=== PATIENT | male | born 1995 | race Caucasian/White ===

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

== ENCOUNTER 2017-04-07 09:19 | Emergency (ER) | payer BC ==
[~2017-04-07] VITALS: Ht 182.9 cm; Wt 80.1 kg
[2017-04-07 09:22] VITALS: TEMP 36.6; Ht 182.9 cm; Wt 80.1 kg
[2017-04-07] MEDS ORDERED: IBUP-103 PO (09:35)
[2017-04-07] MEDS ORDERED: ONDANSETRON INJ 2 MG/ML 2 ML VIAL IV STA (09:44)
[2017-04-07] MEDS ORDERED: MoRPHine SULFATE 4 MG/ML 1 ML CARP\\VIAL IV STA (09:44)
[2017-04-07] MEDS ORDERED: SODIUM CHLORIDE 0.9% 1000ML 1,000 ML IV STA (09:44)
[2017-04-07 09:57] LABS: URINE APPEARANCE CLEAR (CLEAR); URINE BILIRUBIN NEG (NEG); URINE COLOR YELLOW; URINE EPITHELIAL CELL AUTO 0-5 /lpf (0-5); URINE NITRITE NEG (NEG); URINE PH 6.5 (4.5-7.5); URINE SPECIFIC GRAVITY 1.026 (1.000-1.030); UROBILINOGEN NEG (NEG)
[2017-04-07 10:03] LABS: MANUAL MICROSCOPIC REQUIRED? NO; REVIEW REQ? NO
[2017-04-07 10:08] LABS: BASO % 0.1 %; BASO ABS # 0.02 K/uL (0-0.2); COMPLETE YES; EOS % 0.5 %; HEMATOCRIT 44.1 % (42-52); IG% 0.3 %; LYMPH % 7.3 %; LYMPH ABS # 1.11 K/uL (1.2-3.4); MEAN CELL VOLUME 91.3 fL (80-100); MEAN CORPUSCULAR HEMOGLOBIN 32.3 pg (25-34); MEAN CORPUSCULAR HGB CONC 35.4 g/dl (32-36); MEAN PLATELET VOLUME 9.5 fL (7.4-10.4); MONO % 10.3 %; NEUT % 81.5 %; PLATELET COUNT 229 K/uL (130-400); RED BLOOD COUNT 4.83 M/uL (4.7-6.1); WHITE BLOOD COUNT 15.18 K/uL (4.8-10.8)
[2017-04-07 10:19] LABS: BUN/CREATININE RATIO 14.1 (10-20); CALCIUM 9.3 mg/dl (8.5-10.1); CREATININE 0.93 mg/dl (0.60-1.40); POTASSIUM 3.7 mmol/L (3.5-5.1)
--- NOTE | 2017-04-07 11:31 | DIAGNOSTIC IMAGING REPORT ---
ULTRASOUND TESTES AND SCROTUM CLINICAL HISTORY: Right-sided testicular pain and swelling. COMPARISON STUDY: No priors. TECHNIQUE: Real-time, grayscale, and color Doppler sonography of the testes and scrotum is performed. Images are reviewed in the transverse and longitudinal planes. FINDINGS: The testes are normal in size and homogeneous in echotexture. The right testis measures 5.0 x 2.7 x 3.4 cm and the left testis measures 4.8 x 2.2 x 2.8 cm. No intratesticular mass is seen. Testicular blood flow is normal and symmetric. Normal Doppler waveforms are identified in both testes. The right epididymis appears enlarged and hyperemic as compared to the left. The right epididymal head measures 1.5 cm in length and the left epididymal head measures 0.9 cm in length. Bilateral epididymal head cysts measure up to 9 mm. There is a small right-sided hydrocele. No varicocele is seen. IMPRESSION: 1. Unremarkable sonographic assessment of the testes. 2. The right epididymis appears enlarged and hyperemic as compared to the left. Correlate clinically for evidence of epididymitis. Electronically signed by: Marv Lucas M.D. 04/07/2017 11:30 AM Dictated Date/Time: 04/07/2017 11:28 AM
[2017-04-07] MEDS ORDERED: HYDR-5688 PO (12:35)
[2017-04-07] MEDS ORDERED: DOXY100C2 PO (12:35)
[2017-04-07] MEDS ORDERED: CEFTRIAXONE SOD 350MG/ML 1 GM VIAL IM ONE (12:45)
[2017-04-07 13:29] VITALS: BP 139/62; PULSE 97; O2SAT 98
--- NOTE | 2017-04-07 15:58 | EMERGENCY ROOM VISIT NOTE ---
ED Visit Note First contact with patient: 09:34 Chief Complaint: I am having right testicle pain and swelling. History of Present Illness: Mr. Teague is a 21-year-old white male who ambulates into the ED complaining of right testicular pain and swelling. Patient reports his symptoms started approximately 5-6 days ago. They were initially mild and has gradually increased in intensity. He describes his testicular pain as a sharp sensation. His plain is global throughout the entire testicle. He rates his discomfort 7/10. His pain is radiating into the right lower quadrant. His pain worsens with palpation and movement of the testicle. He has not identified any alleviating factors related to the pain. He reports she's been using ibuprofen without relief of his discomfort. Associated with his pain he reports he has noted swelling of the testicle and he has been nauseated but has not vomited. He denies fevers, chills, sweats, skin eruptions, skin color changes, upper respiratory tract symptoms, back/flank pain, upper abdominal pain, hematuria, urinary burning, increased urinary frequency, drainage from the meatus, recent unprotected sexual activity, recent testicular injury/surgeries. Review of Systems: As noted above in history of present illness. All body systems were reviewed and found to be negative as noted above. Past Medical History: Patient denies. Current Medications: Patient denies. Allergies to Medications: Sulfa. Social History: Patient is University student; he feels safe in his home environment; he denies tobacco use. Physical Examination: Vital Signs: Date Time Temp Pulse Resp B/P (MAP) Pulse Ox O2 Delivery O2 Flow Rate FiO2 04/07/17 13:29 97 18 139/62 98 04/07/17 11:40 71 18 148/70 99 Room Air 04/07/17 10:41 71 04/07/17 10:37 70 16 137/71 98 Room Air 04/07/17 09:22 36.6 100 18 143/75 97 Room Air GENERAL: 21-year-old male in mild to moderate distress due to pain, nontoxic- appearing, afebrile and hemodynamically stable. NEUROLOGICAL: Awake, alert and oriented to person, place and time. Answering questions appropriately and following commands. Normal gait. Good hand eye coordination. SKIN: Warm, dry and pink. No soft tissue eruptions or trauma noted. HEENT: Atraumatic and normocephalic. PERRLA. Sclera white and conjunctiva pink. No drainage from naris. Oral cavity moist and pink. Pharynx is nonerythematous or edematous. Speech normal. No lymphadenopathy. Trachea midline. No jugular venous distention. BACK: No tenderness over the bony spine. No CVA tenderness. THORAX: Lungs sounds are clear to auscultation and equal bilaterally with symmetrical chest wall. No wheezing, rales or rhonchi. No crepitus, tenderness , subcutaneous air or deformities noted. HEART: Regular rate and rhythm. No gallops, rubs or murmurs are appreciated. ABDOMEN: Flat, soft and nontender. Positive bowel sounds in all quadrants. No guarding, rigidity or organomegaly. GENITALS: Questionable genital warts on the shaft of the penis. No other lesions noted. No swelling or erythema of the penis. No drainage from the meatus. This is a normal-appearing circumcised penis. Moderate swelling of the right side of the scrotum without erythema or warmth. Tenderness globally throughout the entire testicle. The testicle is enlarged and is in a high riding position. No tenderness or swelling of the left testicle. I do not appreciate any abdominal contents in the scrotum or Dr. canals. EXTREMITIES: Moves all extremities well on command and with purpose. All distal neurovascular statuses are intact and equal bilaterally. ED Course: Patient is assessed as noted above. Patient's medication list was reviewed. Laboratory Testing: Test 04/07/17 09:38 04/07/17 10:00 04/07/17 12:20 Range/Units Urine Color YELLOW Urine Appearance CLEAR CLEAR Urine pH 6.5 4.5-7.5 Urine Specific [place] 1.026 1.000-1.030 Urine Protein TRACE NEG Urine Glucose (UA) NEG NEG Urine Ketones 2+ NEG Urine Occult Blood NEG NEG Urine Nitrite NEG NEG Urine Bilirubin NEG NEG Urine Urobilinogen NEG NEG Urine Leukocyte Esterase MODERATE NEG Urine WBC (Auto) >30 0-5 /hpf Urine RBC (Auto) 0-4 0-4 /hpf Urine Hyaline Casts (Auto) 5-10 0-5 /lpf Urine Epithelial Cells (Auto) 0-5 0-5 /lpf Urine Bacteria (Auto) NEG NEG White Blood Count 15.18 4.8-10.8 K/uL Red Blood Count 4.83 4.7-6.1 M/uL Hemoglobin 15.6 14.0-18.0 g/dL Hematocrit 44.1 42-52 % Mean Corpuscular Volume 91.3 80-100 fL Mean Corpuscular Hemoglobin 32.3 25-34 pg Mean Corpuscular Hemoglobin Concent 35.4 32-36 g/dl Platelet Count 229 130-400 K/uL Mean Platelet Volume 9.5 7.4-10.4 fL Neutrophils (%) (Auto) 81.5 % Lymphocytes (%) (Auto) 7.3 % Monocytes (%) (Auto) 10.3 % Eosinophils (%) (Auto) 0.5 % Basophils (%) (Auto) 0.1 % Neutrophils # (Auto) 12.38 1.4-6.5 K/uL Lymphocytes # (Auto) 1.11 1.2-3.4 K/uL Monocytes # (Auto) 1.56 0.11-0.59 K/uL Eosinophils # (Auto) 0.07 0-0.5 K/uL Basophils # (Auto) 0.02 0-0.2 K/uL RDW Standard Deviation 41.5 36.4-46.3 fL RDW Coefficient of Variation 12.4 11.5-14.5 % Immature Granulocyte % (Auto) 0.3 % Immature Granulocyte # (Auto) 0.04 0.00-0.02 K/uL Sodium Level 137 136-145 mmol/L Potassium Level 3.7 3.5-5.1 mmol/L Chloride Level 102 98-107 mmol/L Carbon Dioxide Level 26 21-32 mmol/L Anion Gap 9.0 3-11 mmol/L Blood Urea Nitrogen 13 7-18 mg/dl Creatinine 0.93 0.60-1.40 mg/dl Est Creatinine Clear Calc Drug Dose 140.3 ml/min Estimated GFR () 137.4 Estimated GFR (Non- 118.6 BUN/Creatinine Ratio 14.1 10-20 Random Glucose 91 70-99 mg/dl Calcium Level 9.3 8.5-10.1 mg/dl Urine Culture: Pending Urethral swab for chlamydia and gonorrhea. Testicular Ultrasound: Was reviewed by myself and read by the radiologist showing an unremarkable assessment of the testes. Right epididymis appears enlarged and hyperemic when compared to the left. Patient was hydrated with normal saline and he received 4 mg of morphine IV for pain and 4 mg of Zofran IV. Patient was reassessed multiple times during his stay in the emergency department. A urethral sample was collected for GC and chlamydia testing. Patient was given 250 mg of ceftriaxone IM. Patient's case was reviewed with Dr. Leal; we agreed on diagnostic approach, treatment, disposition and plan. Patient was educated about today's findings and instructed on his treatment plan ; he verbalizes understanding and agreement with this plan. Clinical Impression: Right testicular pain. Acute epididymitis. Decision-Making: Initially my differential diagnosis I considered testicular torsion, epididymitis, appendicitis, kidney stone, testicular cancer and other causes. Disposition: Patient discharged home in stable condition; prior to departure he was reassessed and subjectively reported he was feeling better and rated his discomfort 2/10. Plan: Patient was placed on a sliding pain scale of ibuprofen, acetaminophen and Lula ; appropriate narcotic precautions and his name was checked in the state database and no red flags were noted. Patient was prescribed doxycycline 100 mg 2 times a day for 10 days. Patient was encouraged to follow-up at [facility] for recheck in 36-48 hours and culture results. Patient was encouraged return ED for worsening/uncontrolled pain, fevers, urinary burning or any new/concerning symptoms.
[2017-04-09 14:41] LABS: CHLAMYDIA TRACH RNA*** NOT DETECTED (NOT DETECTED); GC (NEIS GONORRHOEAE)RNA** NOT DETECTED (NOT DETECTED)
== END 2017-04-07 13:31 | disposition home or self-care (01) ==
LOC: C.EDB 09:20
DX: N50.89 Other specified disorders of the male genital organs (principal); N50.9 Disorder of male genital organs, unspecified

== ENCOUNTER → 2017-04-20 | Outpatient (CLI) | payer BC ==
[~2017-04-20] MED LIST: DOXY100C2 PO; HYDR-5688 PO; IBUP-103 PO
--- NOTE | 2017-04-20 11:35 | DIAGNOSTIC IMAGING REPORT ---
TESTICULAR ULTRASOUND CLINICAL HISTORY: EPIDIDYMITIS COMPARISON STUDY: 04/07/2017 FINDINGS: The right testis measures 52 x 28 x 19 mm. The left testis measures 51 x 29 x 19 mm. No intratesticular masses are visualized. There is no evidence of testicular torsion. There is a 4 mm left-sided epididymal cyst. The right epididymis appears less edematous and heterogeneous than on the prior study but remains mildly hypervascular. IMPRESSION: 1. Improving right-sided epididymitis 2. No evidence of intratesticular mass. No evidence of testicular torsion. Electronically signed by: Dario Ugarte M.D. 04/20/2017 11:34 AM Dictated Date/Time: 04/20/2017 11:31 AM
== END | disposition home or self-care (01) ==
LOC: C.ULTRBC 10:42
PROVIDERS: ATTEND Nurse Practitioner Adult Health
DX: N45.1 Epididymitis (principal)